=== PATIENT | male | born 1985 ===

== ENCOUNTER 2018-02-15 14:32 | Emergency (ER) | payer OTHER, BC ==
[2018-02-15 14:45] VITALS: BP 126/82; PULSE 77; RESP 16; TEMP 98; O2SAT 96
--- NOTE | 2018-02-15 15:04 | ED PDOC ---
HPI: Skin/Bite Injury Time Seen by Provider: 02/15/18 14:47 Chief Complaint (Nursing): Abnormal Skin Integrity Chief Complaint (Provider): Laceration History Per: Patient History/Exam Limitations: no limitations Onset/Duration Of Symptoms: Hrs (30 minutes-1 hour prior to arrival) Current Symptoms Are (Timing): Still Present Additional Complaint(s): 32 year old right hand dominant male presents to the emergency department after sustaining a laceration to the left thumb while trying to remove a pipe at work about 1 hour prior to arrival. Patient denies any acute pain and state his tetanus is up to date. PMD: none Past Medical History Reviewed: Historical Data, Nursing Documentation, Vital Signs Vital Signs: Last Vital Signs Temp 98.0 F 02/15/18 14:42 Pulse 77 02/15/18 14:42 Resp 16 02/15/18 14:42 BP 126/82 02/15/18 14:42 Pulse Ox 96 02/15/18 15:26 - Medical History PMH: No Chronic Diseases - Surgical History Other surgeries: Left arm fracture repair - Family History Family History: States: No Known Family Hx - Living Arrangements Living Arrangements: With Family - Social History Current smoker - smoking cessation education provided: No Alcohol: None Drugs: Denies - Immunization History Hx Tetanus Toxoid Vaccination: Yes - Home Medications Home Medications: Ambulatory Orders Medication Instructions Recorded Clindamycin [Cleocin] 300 mg PO TID #21 cap 02/15/18 - Allergies Allergies/Adverse Reactions: Allergies Allergy/AdvReac Type Severity Reaction Status Date / Time No Known Allergies Allergy Verified 02/15/18 14:41 Review of Systems ROS Statement: Except As Marked, All Systems Reviewed And Found Negative (As per HPI, otherwise negative) Skin: Positive for: Other (Laceration to the left thumb) Physical Exam - Reviewed Nursing Documentation Reviewed: Yes Vital Signs Reviewed: Yes - Physical Exam Appears: Positive for: Well, Non-toxic, No Acute Distress Skin: Positive for: Normal Color. Negative for: Rash Extremity: Positive for: Other (1 cm laceration to the dorsal aspect of the left thumb with debris noted in wound, no active bleeding noted, full rom of affected digit, normal distal sensation). Negative for: Deformity Neurologic/Psych: Positive for: Alert, Oriented (x3) - ECG O2 Sat by Pulse Oximetry: 96 (RA) Pulse Ox Interpretation: Normal Medical Decision Making Medical Decision Making: Time:1500 Initial Impression: Contaminated left thumb laceration Wound has visible debris and is very superficial, sutures not indicated due to risk of infection given presence of debris in wound. Procedure Note: Wound was copiously irrigated with normal saline and Betadine, excess debris was removed as best as possible. Steri-Strips were applied to approximate wound, good wound approximation was achieved, steri-strips adhered with tincture of benzoin, N/V intact s/p placement. Patient given rx clindamycin and wound care instructions. Clinical Impression: Thumb Laceration Scribe Attestation: Documented by Franca Kennedy, acting as a scribe for Myla Nicole PA-C. Provider Scribe Attestation: All medical record entries made by the Scribe were at my direction and personally dictated by me. I have reviewed the chart and agree that the record accurately reflects my personal performance of the history, physical exam, medical decision making, and the department course for this patient. I have also personally directed, reviewed, and agree with the discharge instructions and disposition. Disposition - Clinical Impression Clinical Impression: Thumb laceration - Patient ED Disposition Is Patient to be Admitted: No Counseled Patient/Family Regarding: Diagnosis, Need For Followup, Rx Given - Disposition Referrals: [facility] [Outside] Disposition: Routine/Home Disposition Time: 15:18 Condition: STABLE Additional Instructions: Keep wound clean and dry. Wash daily with soap and water. Take rx meds as directed. Over the counter advil or tylenol for pain. Follow up n 2-3 days with primary care doctor. Prescriptions: Clindamycin [Cleocin] 300 mg PO TID #21 cap Instructions: Laceration Repair Forms: [facility] (Slovenian), [facility] School/Work Excuse
[2018-02-15] MEDS ORDERED: Liquid Adhesive TOP STA (15:10)
== END 2018-02-15 16:20 | disposition home or self-care (01) ==
LOC: H.ER 14:32
DX: S61.012A Laceration without foreign body of left thumb without damage to nail, initial encounter (principal); W22.8XXA Striking against or struck by other objects, initial encounter; Y99.0 Civilian activity done for income or pay